=== PATIENT | male | born 1950 | race African-American/Black ===

== ENCOUNTER 2021-01-22 12:21 | Emergency (ER) | payer MEDICARE ==
[~2021-01-22] VITALS: Ht 172.7 cm; Wt 75.8 kg
[2021-01-22] MEDS ORDERED: ASTAGRAF XL0.5 MG PO (12:40)
[2021-01-22] MEDS ORDERED: SIMVASTATIN5 MG PO (12:40)
[2021-01-22] MEDS ORDERED: FAMOTIDINE 10 M10 MG PO (12:41)
[2021-01-22] MEDS ORDERED: ASA81BEC PO (12:41)
[2021-01-22] MEDS ORDERED: METFORMIN HCL500 M3 PO (12:41)
[2021-01-22 13:24] LABS: ABSOLUTE BASOPHILS 0.1 thou/uL (0.0-0.2); ABSOLUTE EOSINOPHILS 0.1 thou/uL (0.0-0.7); ABSOLUTE LYMPHOCYTES 1.3 thou/uL (0.8-5.3); ABSOLUTE MONOCYTES 0.5 thou/uL (0.0-1.2); ABSOLUTE NEUTROPHILS 4.8 thou/uL (1.6-8.1); BASOPHILS 0.8 %; EOSINOPHILS 1.2 %; HEMATOCRIT 38.7 % (42.0-52.0); LYMPHOCYTES 19.5 %; MCH 29.6 pg (26.0-34.0); MCHC 33.7 g/dL (28.0-37.0); MONOCYTES 7.6 %; MPV 7.4 fl. (7.2-11.1); NUCLEATED RBCS 0 /100WBC; PLATELET COUNT* 239 thou/uL (150-400); POLYS 70.9 %; RBC 4.41 mil/uL (4.50-6.00); WBC 6.7 thou/uL (4.0-11.0)
[2021-01-22 13:27] LABS: CREATININE 1.3 mg/dL (0.6-1.3); POTASSIUM 4.1 mmol/L (3.5-5.1)
[2021-01-22] MEDS ORDERED: ACYCLOVIR 800800 MG PO (14:13)
[2021-01-22] MEDS ORDERED: HYDROCODON-ACE1 EAC7 PO (14:13)
[2021-01-22] MEDS ORDERED: PREDNISONE 10 M10 M1 PO (14:13)
[2021-01-22 14:37] VITALS: BP 158/74
== END 2021-01-22 14:39 | disposition home or self-care (01) ==
LOC: M.ERS 12:21
PROVIDERS: Emergency Medicine Emergency Medical Services
DX: B02.9 Zoster without complications (principal); E11.9 Type 2 diabetes mellitus without complications; Z94.0 Kidney transplant status; Z79.899 Other long term (current) drug therapy; Z79.82 Long term (current) use of aspirin

== ENCOUNTER 2021-05-07 17:06 | Emergency (ER) | payer MEDICARE ==
[~2021-05-07] VITALS: Ht 172.7 cm; Wt 70.3 kg
[~2021-05-07 17:06] MED LIST: ACYCLOVIR 800800 MG PO; ASA81BEC PO; ASTAGRAF XL0.5 MG PO; FAMOTIDINE 10 M10 MG PO; HYDROCODON-ACE1 EAC7 PO; METFORMIN HCL500 M3 PO; PREDNISONE 10 M10 M1 PO; SIMVASTATIN5 MG PO
[2021-05-07] MEDS ORDERED: AUGMENTIN 875-1 EACH PO (20:57)
[2021-05-07] MEDS ORDERED: PERCOCET 5-3251 EACH PO (20:57)
[2021-05-07 21:32] VITALS: BP 155/79
== END 2021-05-07 21:32 | disposition home or self-care (01) ==
LOC: M.ERS 17:06
DX: S68.022A Partial traumatic metacarpophalangeal amputation of left thumb, initial encounter (principal); E11.9 Type 2 diabetes mellitus without complications; Z94.0 Kidney transplant status; Z79.899 Other long term (current) drug therapy; Z79.82 Long term (current) use of aspirin; W45.8XXA Other foreign body or object entering through skin, initial encounter; Y93.89 Activity, other specified; Y92.098 Other place in other non-institutional residence as the place of occurrence of the external cause; Y99.8 Other external cause status